=== PATIENT | female | born 1960 | race African-American/Black ===

== ENCOUNTER 2024-02-18 15:18 | Emergency (ER) | payer OTHER ==
[~2024-02-18] VITALS: Ht 157.5 cm; Wt 86.1 kg
[~2024-02-18 15:18] MED LIST: ASPI81CH43 PO; LISI10TA34 PO; METH-1181 PO; NAP500T PO; TRIATAB3 PO
--- NOTE | 2024-02-18 16:42 | ED.PDOC ---
History of Present Illness HPI Comments 63F presents to the ER w/ prior Hx of bradycardia, HTN and right breast tumor Sx which all may be associated to the c/c of Dizziness. Pt reports on not taking her BP medications for 2 weeks and had a high BP of 198/97. The symptoms were lightheadedness and dizziness. Social Hx of occasional alcohol use, but denies tobacco and substance use. Family Hx of DM. Denies chills, fever, N/V/D, SOB, CP or other associated symptom's, modifiers, or recent injuries or sick contact at this time. Chief Complaint: Dizziness Time Seen by MD: 16:30 Primary Care Provider: NEW? Reviewed Notes: Nurses Notes, Medications, Allergies Allergies: Coded Allergies: NO KNOWN ALLERGIES (Unverified , 05/06/18) Home Meds Reported Medications Methocarbamol (Methocarbamol) 500 Mg Tab, 500 MG PO BID, TAB 05/08/18 Lisinopril (Lisinopril) 10 Mg Tab, 10 MG PO DAILY for 30 Days, MG 05/08/18 Naproxen (NAPROSYN TABLET) 500 Mg Tb, 1 TAB PO BID, #60 TAB 1 Refill 05/08/18 Aspirin (Asa) 81 Mg Ch, 81 MG PO 05/08/18 Triamterene & Hydrochlorothiaz (Maxzide-25) Tab, 1 TAB PO DAILY, #30 TAB 5 Refills 05/08/18 Information Source: Patient Mode of Arrival: Ambulatory Severity: Moderate Timing: Hours Duration: Since onset, Hours Prehospital treatment: None Past Medical History PAST MEDICAL HISTORY: High Lipids, HTN, PE Past Medical History (Other): Bradycardia and "kidney problems" Surgical History (Other): Right breast tumor 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 Family History Family History: Reviewed,noncontributory to illness, Family hx of DM Social History Smoker: Non-Smoker Alcohol: Occasionally Drugs: Denies Drug Use Lives In: Home Constitutional: denies: chills, diaphoresis, fatigue, fever, malaise, sweats, weakness, others EENTM: denies: blurred vision, double vision, ear bleeding, ear discharge, ear drainage, ear pain, ear ringing, eye pain, eye redness, hearing loss, mouth pain, mouth swelling, nasal discharge, nose bleeding, nose congestion, nose pain, photophobia, tearing, throat pain, throat swelling, voice changes, others Respiratory: denies: cough, hemoptysis, orthopnea, SOB at rest, shortness of breath, SOB with excertion, stridor, wheezing, others Cardiovascular: denies: chest pain, dizzy spells, diaphoresis, Dyspnea on exertion, edema, irregular heart beat, left arm pain, lightheadedness, palpitations, PND, syncope, others Gastrointestinal: denies: abdomen distended, abdominal pain, blood streaked bowels, constipated, diarrhea, dysphagia, difficulty swallowing, hematemesis, melena, nausea, poor appetite, poor fluid intake, rectal bleeding, rectal pain, vomiting, others Genitourinary: denies: abnormal vagina bleeding, burning, dyspareunia, dysuria, flank pain, frequency, hematuria, incontinence, pain, , vagina discharge, urgency, others Neurological: reports: dizziness; denies: fainting, headache, left sided numbness, left sided weakness, numbness, paresthesia, pre-existing deficit, right sided numbness, right sided weakness, seizure, speech problems, tingling, tremors, weakness, others Musculoskeletal: denies: back pain, gout, joint pain, joint swelling, muscle pain, muscle stiffness, neck pain, others Integumetry: denies: bruises, change in color, change in hair/nails, dryness, laceration, lesions, lumps, rash, wounds, others Allergic/Immunocompromised: denies: Difficulty Healing, Frequent Infections, Hives, Itching, others Hematologic/Lymphatic: denies: anemia, blood clots, easy bleeding, easy bru ising, swollen glands, others Endocrine: denies: excessive hunger, excessive sweating, excessive thirst, e xcessive urination, flushing, intolerance to cold, intolerance to heat, unexplained weight gain, unexplained weight loss, others Psychiatric: denies: anxiety, bipolar disorder, depression, hopeless, panic disorder, schizophrenia, sleepless, suicidal, others All Other Systems: Reviewed and Negative Physical Exam General Appearance: No Apparent Distress HEENT: Normal ENT Inspection, Pharynx Normal, TMs Normal Neck: Full Range of Motion, Non-Tender, Normal, Normal Inspection Respiratory: Chest Non-Tender, Lungs Clear, No Accessory Muscle Use, No Respiratory Distress, Normal Breath Sounds Cardiovascular: No Edema, No JVD, No Murmur, No Gallop, Normal Peripheral Pulses, Regular Rate/Rhythm Breast Exam: Deferred Gastrointestinal: No Organomegaly, Non Tender, No Pulsatile Mass, Normal Bowel Sounds, Soft Genitalia: Deferred Pelvic: Deferred Rectal: Deferred Extremities: No calf tenderness, Normal capillary refill, Normal inspection, Normal range of motion, Non-tender, No pedal edema Musculoskeletal : Apperance: Normal Neurologic: Alert, 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 Was a procedure done?: No Differential Dx Considerations may include: Hypertensive urgency, hypertensive crisis X-Ray, Labs, Meds, VS Vital Signs Date Time Temp Pulse Resp B/P (MAP) Pulse Ox O2 Delivery O2 Flow Rate FiO2 02/18/24 15:26 98.2 70 18 138/87 (104) 97 Lab Test 02/18/24 16:37 02/18/24 16:00 02/18/24 15:56 Range/Units Sodium Level 142 136-145 mmol/L Potassium Level 3.9 3.5-5.1 mmol/L Chloride Level 108 H 98-107 mmol/L Carbon Dioxide Level 28 20-31 mmol/L Anion Gap 6 5-15 Blood Urea Nitrogen 10 9-23 mg/dL Creatinine 0.88 0.550-1.02 mg/dL Glomerular Filtration Rate Calc 73 >90 mL/min BUN/Creatinine Ratio 11.4 10.0-20.0 Serum Glucose 94 74-106 mg/dL Calcium Level 9.7 8.7-10.4 mg/dL Urine Color Colorless Yellow Urine Clarity Clear Clear Urine pH 7.0 5.0-9.0 Urine Specific [place] 1.003 1.001-1.035 Urine Protein Negative Negative Urine Ketones Negative Negative Urine Blood Negative Negative /uL Urine Nitrite Negative Negative Urine Bilirubin Negative Negative Urine Urobilinogen Normal Negative mg/dL Urine Leukocyte Esterase Negative Negative /uL Urine RBC None seen 0 - 4 /hpf Urine WBC <1 0 - 5 /hpf Urine Squamous Epithelial Cells None seen <5 /hpf Urine Bacteria None seen None Seen /hpf Urine Glucose Normal Normal mg/dL POC Glucose 118 H 70-106 mg/dl The chemistry panel is within normal limits The urine test is negative At this time, the patient's blood pressure has normalized The patient states that she will be taking her blood pressure as directed The patient will follow up with her primary care doctor The patient will return to the emergency department's the condition worsens. The patient was asymptomatic upon leaving We have discussed the findings with the patient and she understands and agrees with the management. Time of 1ST Reevaluation: 17:00 Reevaluation 1ST: Unchanged Patient Education/Counseling: Diagnosis, Treatment, Prognosis, Need For Follow Up Family Education/Counseling: No Family Present Departure 1 Departure Time of Disposition: 17:34 Impression: Primary Impression: Hypertensive urgency Disposition: 01 HOME / SELF CARE / HOMELESS Condition: Fair Discharged With: Self Critical Care Note Critical Care Time?: No Stability Stability form required: No Heart Score Heart Score: Heart Score Response (Comments) Value History N/A 0 EKG N/A 0 Age N/A 0 Risk Factors N/A 0 Troponin N/A 0 Total 0 I personally scribed for SHOSHANA WALLACE MD ([email or web address]) on 02/18/24 at 16:42. Electronically submitted by Bubba Guy ([email or web address]). SHOSHANA WALLACE MD Feb 18, 2024 16:42
--- NOTE | 2024-02-18 16:43 | ECG ---
[facility] Test Date: 2024-02-18 Test Time: 16:22:04 Pat Name: BRADLEY NUNES Department: ER Room: Gender: F Records Management Technician: DANDY : 1960 Requested By: SHOSHANA WALLACE Order Number: [id number] Reading MD: Measurements Intervals [place] Rate: 54 P: 35 IA: 158 QRS: 1 QRSD: 92 T: -74 QT: 689 QTc: 654 Interpretive Statements Sinus rhythm Probable left atrial enlargement Left ventricular hypertrophy Borderline T abnormalities, diffuse leads Prolonged QT interval Baseline wander in lead(s) II,III,aVR,aVL,aVF,V1,V2,V3,V4,V5,V6 Please click the below link to view image of tracing.
[2024-02-18 17:11] LABS: Urine Bacteria None Seen /hpf (None Seen)
[2024-02-18 17:18] LABS: Anion Gap 6 (5-15); Carbon Dioxide 28 mmol/L (20-31); Potassium 3.9 mmol/L (3.5-5.1); Sodium 142 mmol/L (136-145)
[2024-02-18 17:19] LABS: Calcium 9.7 mg/dL (8.7-10.4)
[2024-02-18 17:21] LABS: Chloride 108 mmol/L (98-107)
[2024-02-18 17:23] LABS: Urine Blood Negative /uL (Negative); Urine Clarity Clear (Clear); Urine Color Colorless (Yellow); Urine Protein, UAD Negative (Negative); Urine Specific Gravity 1.003 (1.001-1.035); Urine Urobilinogen Normal (Negative); Urine WBC <1 /hpf (0 - 5)
[2024-02-18 17:24] LABS: BUN/Creatinine Ratio 11.4 (10.0-20.0); Blood Urea Nitrogen 10 mg/dL (9-23); Glucose 94 mg/dL (74-106)
[2024-02-18 17:58] VITALS: BP 146/80; PULSE 78; RESP 17; TEMP 98.7; O2SAT 96
== END 2024-02-18 18:01 | disposition home or self-care (01) ==
LOC: ER 15:18
DX: I16.0 Hypertensive urgency (principal); E78.5 Hyperlipidemia, unspecified; Z98.890 Other specified postprocedural states; Z79.899 Other long term (current) drug therapy
CPT/HCPCS: 36415; 80048; 81001; 82962; 93005

== ENCOUNTER 2024-11-04 08:58 | Emergency (ER) | payer OTHER ==
[~2024-11-04] VITALS: Ht 160 cm; Wt 82.0 kg
--- NOTE | 2024-11-04 09:53 | ECG ---
[facility] Test Date: 2024-11-04 Test Time: 09:18:06 Pat Name: BRADLEY NUNES Department: ED Room: Gender: F Viscosity Tester: JITENDRA : 1960 Requested By: SHOSHANA WALLACE Order Number: [id number] Reading MD: Measurements Intervals [place] Rate: 51 P: 50 PA: 162 QRS: 37 QRSD: 93 T: -4 QT: 499 QTc: 460 Interpretive Statements Sinus rhythm Nonspecific T abnormalities, anterior leads Please click the below link to view image of tracing.
--- NOTE | 2024-11-04 09:53 | ED.PDOC ---
History of Present Illness HPI Comments 63 y/o F, presents to the ED for CC of hypertension. Patient states, she has had higher than normal blood pressure reading onset, this morning (11/04/24). Patient reports, she believes increase maybe d/t currently being under stress because of marital problems. Patient denies chest pain, shortness of breath, headache, or dizziness. No other symptoms or modifying factors are present at this time. Chief Complaint: High Blood Pressure Time Seen by MD: 09:08 Primary Care Provider: NEW? Reviewed Notes: Nurses Notes, Medications, Allergies Allergies: Coded Allergies: NO KNOWN ALLERGIES (Unverified , 05/06/18) Home Meds Reported Medications Methocarbamol (Methocarbamol) 500 Mg Tab, 500 MG PO BID, TAB 05/08/18 Lisinopril (Lisinopril) 10 Mg Tab, 10 MG PO DAILY for 30 Days, MG 05/08/18 Naproxen (NAPROSYN TABLET) 500 Mg Tb, 1 TAB PO BID, #60 TAB 1 Refill 05/08/18 Aspirin (Asa) 81 Mg Ch, 81 MG PO 05/08/18 Triamterene & Hydrochlorothiaz (Maxzide-25) Tab, 1 TAB PO DAILY, #30 TAB 5 Refills 05/08/18 Information Source: Patient Mode of Arrival: Ambulatory Severity: Moderate Timing: Minutes Duration: Since onset Prehospital treatment: None Past Medical History PAST MEDICAL HISTORY: High Lipids, HTN, PE 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: 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 all 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 DOOR TO DOOR Hx Family History Family History: Reviewed,noncontributory to illness, Family hx of DM Social History Smoker: Non-Smoker Alcohol: Occasionally Drugs: Denies Drug Use Lives In: Home Constitutional: denies: chills, diaphoresis, fatigue, fever, malaise, sweats, weakness, others EENTM: denies: blurred vision, double vision, ear bleeding, ear discharge, ear drainage, ear pain, ear ringing, eye pain, eye redness, hearing loss, mouth pain, mouth swelling, nasal discharge, nose bleeding, nose congestion, nose pain, photophobia, tearing, throat pain, throat swelling, voice changes, others Respiratory: denies: cough, hemoptysis, orthopnea, SOB at rest, shortness of breath, SOB with excertion, stridor, wheezing, others Cardiovascular: denies: chest pain, dizzy spells, diaphoresis, Dyspnea on exertion, edema, irregular heart beat, left arm pain, lightheadedness, palpitations, PND, syncope, others Gastrointestinal: denies: abdomen distended, abdominal pain, blood streaked bowels, constipated, diarrhea, dysphagia, difficulty swallowing, hematemesis, melena, nausea, poor appetite, poor fluid intake, rectal bleeding, rectal pain, vomiting, others Genitourinary: denies: abnormal vagina bleeding, burning, dyspareunia, dysuria, flank pain, frequency, hematuria, incontinence, pain, , vagina discharge, urgency, others Neurological: denies: dizziness, fainting, headache, left sided numbness, left sided weakness, numbness, paresthesia, pre-existing deficit, right sided numbness, right sided weakness, seizure, speech problems, tingling, tremors, weakness, others Musculoskeletal: denies: back pain, gout, joint pain, joint swelling, muscle pain, muscle stiffness, neck pain, others Integumetry: denies: bruises, change in color, change in hair/nails, dryness, laceration, lesions, lumps, rash, wounds, others Allergic/Immunocompromised: denies: Difficulty Healing, Frequent Infections, Hives, Itching, others Hematologic/Lymphatic: denies: anemia, blood clots, easy bleeding, easy bruising, swollen glands, others Endocrine: denies: excessive hunger, excessive sweating, excessive thirst, excessive urination, flushing, intolerance to cold, intolerance to heat, unexplained weight gain, unexplained weight loss, others Psychiatric: denies: anxiety, bipolar disorder, depression, hopeless, panic disorder, schizophrenia, sleepless, suicidal, others All Other Systems: Reviewed and Negative Physical Exam General Appearance: No Apparent Distress HEENT: Normal ENT Inspection, Pharynx Normal, TMs Normal Neck: Full Range of Motion, Non-Tender, Normal, Normal Inspection Respiratory: Chest Non-Tender, Lungs Clear, No Accessory Muscle Use, No Respiratory Distress, Normal Breath Sounds Cardiovascular: No Edema, No JVD, No Murmur, No Gallop, Normal Peripheral Pulses, Regular Rate/Rhythm Breast Exam: Deferred Gastrointestinal: No Organomegaly, Non Tender, No Pulsatile Mass, Normal Bowel Sounds, Soft Genitalia: Deferred Pelvic: Deferred Rectal: Deferred Extremities: No calf tenderness, Normal capillary refill, Normal inspection, Normal range of motion, Non-tender, No pedal edema Musculoskeletal : Apperance: Normal Neurologic: Alert, 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 Was a procedure done?: No Differential Dx Considerations may include: hypertensive urgency, stress induced, X-Ray, Labs, Meds, VS Vital Signs Date Time Temp Pulse Resp B/P (MAP) Pulse Ox O2 Delivery O2 Flow Rate FiO2 11/04/24 09:20 51 11/04/24 09:00 98.4 58 16 148/79 98 98.4 The patient's blood pressure is within normal limits at this time The patient is being discharged with a diagnosis of hypertensive urgency The patient will return to the emergency department's the condition worsens The patient understands and agrees with the management. The patient did explain that her blood pressure is elevated because of some incidents at the house. The patient was told to manage her stress level to keep her blood pressure within normal range Time of 1ST Reevaluation: :58 Reevaluation 1ST: Improved Patient Education/Counseling: Diagnosis, Treatment, Prognosis, Need For Follow Up Family Education/Counseling: No Family Present SEPSIS Sepsis Screen Date sepsis recognized/suspect: Nov 04, 2024 Time Sepsis recognized/suspect: 899 Recent Procedure: No On Antibiotic Therapy: No Respiratory Rate >20: No Heart Rate >90: No Temp<36 C (96.8 F) or >38.3 C: No SBP <90 or MAP <65 mmHG: No New Acute Mental Status Change: No Is the patient on CPAP, BIPAP,: No Vital Signs Date Time Temp Pulse Resp B/P (MAP) Pulse Ox O2 Delivery O2 Flow Rate FiO2 11/04/24 09:20 51 11/04/24 09:00 98.4 58 16 148/79 98 98.4 Departure 1 Departure Time of Disposition: :59 Impression: Primary Impression: Hypertensive urgency Disposition: 01 HOME / SELF CARE / HOMELESS Condition: Fair Discharged With: Self Critical Care Note Critical Care Time?: No Stability Stability form required: No Heart Score Heart Score: Heart Score Response (Comments) Value History N/A 0 EKG N/A 0 Age N/A 0 Risk Factors N/A 0 Troponin N/A 0 Total 0 I personally scribed for SHOSHANA WALLACE MD ([email or web address]) on 11/04/24 at 09:53. Electronically submitted by Ruth Costa [email or web address]). SHOSHANA WALLACE MD Nov 04, 2024 09:53
[2024-11-04 09:59] VITALS: BP 176/83; TEMP 98.5
[2024-11-04 10:00] VITALS: PULSE 51; RESP 18; O2SAT 97
== END 2024-11-04 10:15 | disposition home or self-care (01) ==
LOC: ER 08:58
DX: I16.0 Hypertensive urgency (principal); F10.90 Alcohol use, unspecified, uncomplicated; I10 Essential (primary) hypertension; E78.5 Hyperlipidemia, unspecified; Z79.899 Other long term (current) drug therapy; Y90.9 Presence of alcohol in blood, level not specified
CPT/HCPCS: 93005